=== PATIENT | female | born 1960 | race Caucasian/White ===

== ENCOUNTER 2018-09-09 13:01 | Observation (INO) | payer BC ==
[2018-09-09] MEDS: SOD CHLORIDE 0.9% 250 ML IV* (01:40)
[2018-09-09] MEDS: ONDANSETRON 4 MG INJ IV (16:06)
[2018-09-09] MEDS: HYDROmorphONE 2 MG/ML SYG IV (16:07)
[2018-09-09 16:18] LABS: ABNORMAL IP MESSAGE 1; HEMATOCRIT 20.4 % (37.0-47.0); MEAN CORPUSCULAR HEMOGLOBIN 24.3 pg (29.0-33.0); MEAN CORPUSCULAR HGB CONC 31.9 g/dl (32.0-37.0); MEAN CORPUSCULAR VOLUME 76.1 fl (82.0-101.0); MEAN PLATELET VOLUME 8.3 fl (7.4-10.4); PLATELET COUNT 534 10^3/UL (140-415); RED BLOOD COUNT 2.68 10^6/ul (4.20-5.40); RED CELL DISTRIBUTION WIDTH 16.6 % (11.5-14.5)
[2018-09-09 16:18] LABS: WHITE BLOOD COUNT 10.6 10^3/ul (4.8-10.8)
[2018-09-09 16:35] LABS: ADD MAN DIFF? YES; ALANINE AMINOTRANSFERASE 12 IU/L (13-69); ALBUMIN 3.8 g/dl (3.3-4.9); ALBUMIN/GLOBULIN RATIO 0.88; ALKALINE PHOSPHATASE 148 IU/L (42-121); ANION GAP 12 (5-13); ASPARTATE AMINO TRANSFERASE 40 IU/L (15-46); BILIRUBIN,INDIRECT 0.5 mg/dl (0-1.1); BILIRUBIN,TOTAL 0.5 mg/dl (0.2-1.3); BLOOD UREA NITROGEN 19 mg/dl (7-20); CALCIUM 8.8 mg/dl (8.4-10.2); CARBON DIOXIDE 26 mmol/L (21-31); CHLORIDE 97 mmol/L (97-110); Estimated GFR > 60 mL/min (>60); GLUCOSE 154 mg/dl (70-220); HEMOGLOBIN 6.5 g/dl (12.0-16.0); LIPASE 1585 U/L (23-300); POSITIVE DIFF @See below; SODIUM 135 mmol/L (135-144); TOTAL PROTEIN 8.1 g/dl (6.1-8.1)
[2018-09-09 16:43] LABS: INR 1.14; PROTIME 14.7 Sec (11.9-14.9); PT RATIO 1.1
[2018-09-09 16:44] LABS: PARTIAL THROMBOPLASTIN TIME 22.8 Sec (23.0-35.0)
[2018-09-09 16:47] LABS: TROPONIN-I < 0.012 ng/ml (0.000-0.120)
[2018-09-09] MEDS ORDERED: ONDANSETRON 4 MG INJ IV ×2 (17:00→19:00)
[2018-09-09] MEDS ORDERED: ACETAMINOPHEN 325 MG TAB PO ×2 (17:00→19:00)
[2018-09-09 17:05] LABS: ANISOCYTOSIS 1+ (0-0); BASOPHIL #M 0.3 10^3/ul (0.0-0.0); BASOPHILS % (M) 3 % (0-2); EOSINOPHILS % (M) 7 % (0-7); HYPOCHROMASIA 2+ (0-0); LYMPHOCYTES #M 1.4 10^3/ul (0.8-2.9); LYMPHOCYTES % (M) 14 % (15-51); MICROCYTOSIS 1+ (0-0); MONOCYTE #M 0.3 10^3/ul (0.3-0.9); MONOCYTES % (M) 3 % (0-11); PLATELET ESTIMATE INCREASED; POLYCHROMASIA 1+ (0-0); SEGMENTED NEUTROPHILS (M) % 73 % (39-77); SMUDGE%M 1 % (0-0)
[2018-09-09 19:38] LABS: RETICULOCYTE COUNT # 0.044 X10^6 (0.020-0.110); RETICULOCYTE COUNT % 1.6 % (0.5-1.5)
[2018-09-09 19:38] LABS: RETICULOCYTE RBC 2.69
[2018-09-09] MEDS: morphine 4 MG/ML VIAL IV ×2 (19:42→22:47)
[2018-09-09 20:27] LABS: IRON 17 ug/dl (35-150)
[2018-09-09 20:36] LABS: % IRON SATURATION 7 % SAT (22-52); TOTAL IRON BINDING CAPACITY 240 ug/dl (241-421)
[2018-09-09] MEDS: ACETAMINOPHEN 325 MG TAB PO (20:40)
[2018-09-09 21:00] LABS: FOLATE > 20.0 ng/ml (2.8-20.0)
[2018-09-09] MEDS: SOD CHLORIDE 0.9% 0 ML IV (21:10)
[2018-09-10] MEDS: FUROSEMIDE 40 MG INJ IV (00:42)
[2018-09-10 01:06] LABS: ADD UMIC NO; UR ASCORBIC ACID NEGATIVE (NEGATIVE); UR BILIRUBIN (Dip) NEGATIVE (NEGATIVE); UR BLOOD (Dip) NEGATIVE (NEGATIVE); UR CLARITY CLEAR (CLEAR); UR COLOR STRAW (YELLOW); UR GLUCOSE (Dip) NEGATIVE (NEGATIVE); UR KETONES (Dip) NEGATIVE (NEGATIVE); UR LEUKOCYTE ESTERASE (Dip) NEGATIVE Leu/ul (NEGATIVE); UR NITRITE (Dip) NEGATIVE (NEGATIVE); UR SPECIFIC GRAVITY (Dip) 1.008 (1.003-1.030); UR TOTAL PROTEIN (Dip) NEGATIVE (NEGATIVE); UR UROBILINOGEN (Dip) NEGATIVE (NEGATIVE)
[2018-09-10] MEDS: morphine 4 MG/ML VIAL IV ×7 (01:10→15:01)
[2018-09-10 06:14] LABS: IMMEDIATE SPIN CROSSMATCH 1 5
[2018-09-10] MEDS: morphine 2 MG INJ IV ×2 (08:14→13:08)
[2018-09-10] MEDS ORDERED: SENNA TAB PO (11:00)
[2018-09-10] MEDS ORDERED: POLYETHYLENE GLYCOL 17 GM PACKET PO (11:00)
[2018-09-10 11:33] LABS: ADD MAN DIFF? NO
[2018-09-10 11:40] LABS: BASOPHIL # 0.1 10^3/ul (0.0-0.1); BASOPHILS % 0.5 % (0.0-2.0); EOSINOPHILS # 1.4 10^3/ul (0.0-0.5); EOSINOPHILS % 14.4 % (0.0-7.0); HEMATOCRIT 35.2 % (37.0-47.0); HEMOGLOBIN 11.4 g/dl (12.0-16.0); LYMPHOCYTES # 1.3 10^3/ul (0.8-2.9); LYMPHOCYTES % 13.5 % (15.0-51.0); MEAN CORPUSCULAR HEMOGLOBIN 26.3 pg (29.0-33.0); MEAN CORPUSCULAR HGB CONC 32.4 g/dl (32.0-37.0); MEAN CORPUSCULAR VOLUME 81.3 fl (82.0-101.0); MEAN PLATELET VOLUME 8.2 fl (7.4-10.4); MONOCYTE # 0.7 10^3/ul (0.3-0.9); MONOCYTES % 7.7 % (0.0-11.0); NEUTROPHILS % 63.7 % (39.0-77.0); PLATELET COUNT 442 10^3/UL (140-415); RED BLOOD COUNT 4.33 10^6/ul (4.20-5.40); RED CELL DISTRIBUTION WIDTH 15.9 % (11.5-14.5)
[2018-09-10 11:40] LABS: WHITE BLOOD COUNT 9.5 10^3/ul (4.8-10.8)
[2018-09-10 11:59] LABS: INR 1.13; PROTIME 14.6 Sec (11.9-14.9); PT RATIO 1.1
[2018-09-10 12:00] LABS: PARTIAL THROMBOPLASTIN TIME 34.5 Sec (23.0-35.0)
[2018-09-10 12:04] LABS: ANION GAP 14 (5-13); BLOOD UREA NITROGEN 12 mg/dl (7-20); CALCIUM 9.3 mg/dl (8.4-10.2); CARBON DIOXIDE 25 mmol/L (21-31); CHLORIDE 100 mmol/L (97-110); CREATININE 0.49 mg/dl (0.44-1.00); Estimated GFR > 60 mL/min (>60); GLUCOSE 87 mg/dl (70-220); POTASSIUM 4.1 mmol/L (3.5-5.1); SODIUM 139 mmol/L (135-144)
[2018-09-10] MEDS: FERROUS SULFATE (EC) 325 MG TAB PO (13:07)
== END 2018-09-10 15:58 | disposition home or self-care (01) ==
LOC: E/R 13:01 → 2NE 17:05
DX: C25.9 Malignant neoplasm of pancreas, unspecified (principal); D50.9 Iron deficiency anemia, unspecified
CPT/HCPCS: 36415; 36430; 71045; 80048; 80053; 81003; 82607; 82746; 83540; 83690; 84484; 85025; 85045; 85610; 85730; 86850; 86900; 86901; 86920; 93005; 96374; 96375; 99291-25

== ENCOUNTER 2018-11-23 13:06 | Emergency (ER) | payer BC ==
[2018-11-23] MEDS: SOD CHLORIDE 0.9% 0 ML IV (14:02)
[2018-11-23] MEDS: ALTEPLASE (CATHFLO) 2 MG INJ CATHETER (14:41)
[2018-11-23 15:22] LABS: ABNORMAL IP MESSAGE 1; HEMATOCRIT 21.9 % (37.0-47.0); MEAN CORPUSCULAR HEMOGLOBIN 28.8 pg (29.0-33.0); MEAN CORPUSCULAR HGB CONC 31.5 g/dl (32.0-37.0); MEAN CORPUSCULAR VOLUME 91.3 fl (82.0-101.0); MEAN PLATELET VOLUME 8.3 fl (7.4-10.4); PLATELET COUNT 248 10^3/UL (140-415); RED CELL DISTRIBUTION WIDTH 25.5 % (11.5-14.5)
[2018-11-23 15:32] LABS: HEMOGLOBIN 6.9 g/dl (12.0-16.0); POSITIVE DIFF @See below
[2018-11-23 15:33] LABS: ADD MAN DIFF? YES; PATH REVIEW? YES
[2018-11-23 15:40] LABS: ALANINE AMINOTRANSFERASE 16 IU/L (13-69); ALBUMIN 2.8 g/dl (3.3-4.9); ALBUMIN/GLOBULIN RATIO 0.82; ALKALINE PHOSPHATASE 94 IU/L (42-121); ANION GAP 4 (5-13); ASPARTATE AMINO TRANSFERASE 23 IU/L (15-46); BILIRUBIN,INDIRECT 0.5 mg/dl (0-1.1); BILIRUBIN,TOTAL 0.5 mg/dl (0.2-1.3); BLOOD UREA NITROGEN 10 mg/dl (7-20); CALCIUM 7.5 mg/dl (8.4-10.2); CARBON DIOXIDE 26 mmol/L (21-31); CHLORIDE 108 mmol/L (97-110); CREATININE 0.41 mg/dl (0.44-1.00); Estimated GFR > 60 mL/min (>60); GLUCOSE 145 mg/dl (70-220); POTASSIUM 3.1 mmol/L (3.5-5.1); SODIUM 138 mmol/L (135-144); TOTAL PROTEIN 6.2 g/dl (6.1-8.1)
[2018-11-23 15:43] LABS: PROTIME 15.3 Sec (11.9-14.9); PT RATIO 1.2
[2018-11-23 15:44] LABS: PARTIAL THROMBOPLASTIN TIME 28.6 Sec (23.0-35.0)
[2018-11-23 15:52] LABS: TROPONIN-I < 0.012 ng/ml (0.000-0.120)
[2018-11-23 16:10] LABS: IMMEDIATE SPIN CROSSMATCH 1 2
[2018-11-23 17:08] LABS: ANISOCYTOSIS 1+ (0-0); BASOPHILS % (M) 1 % (0-2); EOSINOPHILS % (M) 1 % (0-7); ERYTHROBLAST% (NRBC) (M) 1 % (0-0); HYPOCHROMASIA 1+ (0-0); LYMPHOCYTES % (M) 20 % (15-51); MICROCYTOSIS 1+ (0-0); MONOCYTE #M 0.3 10^3/ul (0.3-0.9); MONOCYTES % (M) 6 % (0-11); POIKILOCYTOSIS 1+ (0-0); SEGMENTED NEUTROPHILS (M) % 72 % (39-77); SMUDGE%M 7 % (0-0)
[2018-11-23] MEDS: POTASSIUM CHLORIDE (SR) 20 MEQ TAB PO (17:56)
[2018-11-23] MEDS ORDERED: ONDANSETRON 4 MG INJ IV (18:30)
[2018-11-23] MEDS ORDERED: ACETAMINOPHEN 325 MG TAB PO (18:30)
== END 2018-11-23 21:28 | disposition home or self-care (01) ==
LOC: E/R 13:06
PROVIDERS: Pediatrics
DX: D64.9 Anemia, unspecified (principal); R40.2142 Coma scale, eyes open, spontaneous, at arrival to emergency department; R40.2362 Coma scale, best motor response, obeys commands, at arrival to emergency department; R40.2252 Coma scale, best verbal response, oriented, at arrival to emergency department; C53.9 Malignant neoplasm of cervix uteri, unspecified; C25.9 Malignant neoplasm of pancreas, unspecified; C22.9 Malignant neoplasm of liver, not specified as primary or secondary
CPT/HCPCS: 36415; 36430; 80053; 84484; 85025; 85610; 85730; 86850; 86900; 86901; 86920; 93005; 99285-25

== ENCOUNTER 2019-03-02 12:53 | Emergency (ER) | payer BC ==
[2019-03-02 13:30] LABS: ADD MAN DIFF? NO
[2019-03-02 13:31] LABS: ABNORMAL IP MESSAGE 1; BASOPHILS % 0.2 % (0.0-2.0); EOSINOPHILS # 0.1 10^3/ul (0.0-0.5); EOSINOPHILS % 1.8 % (0.0-7.0); HEMATOCRIT 20.7 % (37.0-47.0); LYMPHOCYTES % 20.3 % (15.0-51.0); MEAN CORPUSCULAR HEMOGLOBIN 33.3 pg (29.0-33.0); MEAN CORPUSCULAR HGB CONC 31.9 g/dl (32.0-37.0); MEAN CORPUSCULAR VOLUME 104.5 fl (82.0-101.0); MEAN PLATELET VOLUME 8.6 fl (7.4-10.4); MONOCYTE # 0.6 10^3/ul (0.3-0.9); MONOCYTES % 11.2 % (0.0-11.0); NEUTROPHIL # 3.3 10^3/ul (1.6-7.5); NEUTROPHILS % 66.1 % (39.0-77.0); PLATELET COUNT 113 10^3/UL (140-415); RED BLOOD COUNT 1.98 10^6/ul (4.20-5.40); RED CELL DISTRIBUTION WIDTH 19.3 % (11.5-14.5)
[2019-03-02 13:38] LABS: POSITIVE DIFF @See below
[2019-03-02 13:40] LABS: HEMOGLOBIN 6.6 g/dl (12.0-16.0); PATH REVIEW? YES
[2019-03-02 13:57] LABS: ANION GAP 6 (5-13); BLOOD UREA NITROGEN 22 mg/dl (7-20); CALCIUM 8.3 mg/dl (8.4-10.2); CARBON DIOXIDE 25 mmol/L (21-31); CHLORIDE 107 mmol/L (97-110); CREATININE 0.58 mg/dl (0.44-1.00); Estimated GFR > 60 mL/min (>60); GLUCOSE 114 mg/dl (70-220); POTASSIUM 3.3 mmol/L (3.5-5.1); SODIUM 138 mmol/L (135-144)
[2019-03-02 14:40] LABS: ANISOCYTOSIS 1+ (0-0); BAND NEUTROPHILS #M 0.1 10^3/ul (0.0-0.6); BAND NEUTROPHILS % (M) 3 % (0-4); EOSINOPHILS % (M) 2 % (0-7); LYMPHOCYTES #M 1.2 10^3/ul (0.8-2.9); LYMPHOCYTES % (M) 24 % (15-51); MONOCYTE #M 0.3 10^3/ul (0.3-0.9); MONOCYTES % (M) 7 % (0-11); PLATELET ESTIMATE DECREASED; PLATELET MORPHOLOGY COMMENT @See below; POIKILOCYTOSIS 1+ (0-0); POLYCHROMASIA 2+ (0-0); SEG NEUT #M 3.2 10^3/ul (1.6-7.5); SEGMENTED NEUTROPHILS (M) % 64 % (39-77); SMUDGE%M 19 % (0-0)
[2019-03-02 15:55] LABS: IMMEDIATE SPIN CROSSMATCH 1 2
[2019-03-02] MEDS: SOD CHLORIDE 0.9% 0 ML IV (16:20)
[2019-03-02] MEDS: HEPARIN (100 UNITS/ML) 5 ML SYG CATHETER (19:19)
[2019-03-02 20:55] LABS: ADD MAN DIFF? NO
[2019-03-02 20:57] LABS: BASOPHILS % 0.6 % (0.0-2.0); EOSINOPHILS # 0.1 10^3/ul (0.0-0.5); EOSINOPHILS % 2.7 % (0.0-7.0); HEMATOCRIT 28.6 % (37.0-47.0); HEMOGLOBIN 9.3 g/dl (12.0-16.0); LYMPHOCYTES # 1.2 10^3/ul (0.8-2.9); LYMPHOCYTES % 24.7 % (15.0-51.0); MEAN CORPUSCULAR HEMOGLOBIN 33.2 pg (29.0-33.0); MEAN CORPUSCULAR HGB CONC 32.5 g/dl (32.0-37.0); MEAN CORPUSCULAR VOLUME 102.1 fl (82.0-101.0); MEAN PLATELET VOLUME 8.9 fl (7.4-10.4); MONOCYTE # 0.5 10^3/ul (0.3-0.9); MONOCYTES % 10.4 % (0.0-11.0); NEUTROPHIL # 2.9 10^3/ul (1.6-7.5); NEUTROPHILS % 61.2 % (39.0-77.0); PLATELET COUNT 116 10^3/UL (140-415); RED CELL DISTRIBUTION WIDTH 19.8 % (11.5-14.5)
[2019-03-02 20:57] LABS: WHITE BLOOD COUNT 4.8 10^3/ul (4.8-10.8)
== END 2019-03-02 21:57 | disposition home or self-care (01) ==
LOC: E/R 12:53
PROVIDERS: Pediatrics Neonatal-Perinatal Medicine
DX: D64.9 Anemia, unspecified (principal); C25.9 Malignant neoplasm of pancreas, unspecified; C53.9 Malignant neoplasm of cervix uteri, unspecified; C22.9 Malignant neoplasm of liver, not specified as primary or secondary
CPT/HCPCS: 36415; 36430; 80048; 85025; 86850; 86900; 86901; 86920; 99285-25